=== PATIENT | male | born 1970 | race Caucasian/White ===

== ENCOUNTER 2018-10-17 07:26 | Emergency (ER) | payer MEDICAID ==
[~2018-10-17] VITALS: Ht 165.1 cm; Wt 77.3 kg
[2018-10-17 07:30] VITALS: BP 137/79
--- NOTE | 2018-10-17 07:50 | NUR ---
AMBULATORY TO ER #13 WITH C/O COUGH AND CONGESTION. PATIENT HAS MUMBLING, INCOMPLETE SENTENCES, AND IS DIFFICULT TO FOLLOW, BUT STATES THAT HE WAS TAKING IBUPROFEN FOR BODY ACHES AND COLD SYMPTOMS. DENIES MEDICAL PROBLEMS. STATES HX PSYCH PROBLEMS WITH INPATIENT ADMISSION. O2 SATS 97% ON ROOM AIR.
[2018-10-18] MEDS ORDERED: PRED20TA PO (05:10)
[2018-10-18] MEDS ORDERED: ALBU6.7H INH (05:10)
== END 2018-10-17 08:23 | disposition home or self-care (01) ==
LOC: ER 07:28 → EDSEX 07:28 → ER 08:23
DX: J20.9 Acute bronchitis, unspecified (principal); F17.210 Nicotine dependence, cigarettes, uncomplicated
CPT/HCPCS: 99281; 99406

== ENCOUNTER 2018-10-18 03:51 | Emergency (ER) | payer MEDICAID ==
[~2018-10-18] VITALS: Ht 165.1 cm; Wt 77.3 kg
[2018-10-18 03:54] VITALS: BP 134/83
--- NOTE | 2018-10-18 05:00 | NUR ---
Patient have multiple vague complaints. The reason for his visit is, "whole body infection." When asked why he thinks he has a whole body infection he states, "because of bile." Patient is resting comfortably in a chair with rapid speech and difficulty staying on one topic.
[2018-10-18] MEDS ORDERED: albuterol 2.5 mg/0.5ml nebule NEB ONE (05:10)
[2018-10-18] MEDS ORDERED: dexamethasone 4mg tablet PO ONE (05:10)
[2018-10-18] MEDS ORDERED: PRED20TA PO (05:10)
[2018-10-18] MEDS ORDERED: ALBU6.7H INH (05:10)
[2018-10-18] MEDS ORDERED: albuterol 2.5 MG/3 ML nebule NEB ONE (05:15)
== END 2018-10-18 05:46 | disposition home or self-care (01) ==
LOC: ER 03:52
DX: J40 Bronchitis, not specified as acute or chronic (principal); F17.200 Nicotine dependence, unspecified, uncomplicated; F10.10 Alcohol abuse, uncomplicated; Z71.6 Tobacco abuse counseling; Z59.0 Homelessness
CPT/HCPCS: 94640; 94760; 99283; J8540; J7611

== ENCOUNTER 2018-10-21 22:43 | Emergency (ER) | payer MEDICAID ==
[~2018-10-21] VITALS: Ht 165.1 cm; Wt 66.3 kg
[~2018-10-21 22:43] MED LIST: ALBU6.7H INH; PRED20TA PO
[2018-10-21 22:52] VITALS: BP 136/84
[2018-10-21 23:20] LABS: BASOPHILS # (AUTO) 0.1 X10'3 (0-0.2); BASOPHILS % (AUTO) 0.8 % (0-1); EOSINOPHILS # (AUTO) 0.1 X10'3 (0-0.9); EOSINOPHILS % (AUTO) 1.4 % (0-6); HEMOGLOBIN 15.7 g/dl (14.0-17.9); LYMPHOCYTES # (AUTO) 2.6 X10'3 (1.1-4.8); LYMPHOCYTES % (AUTO) 30.8 % (21-51); MEAN CORPUSCULAR HEMOGLOBIN 30.4 PG (27.0-31.0); MEAN CORPUSCULAR VOLUME 89.2 FL (78-98); MEAN PLATELET VOLUME 9.2 FL (7.4-10.4); MONOCYTES # (AUTO) 0.8 X10'3 (0-0.9); MONOCYTES % (AUTO) 9.5 % (2-12); NEUTROPHILS # (AUTO) 4.8 X10'3 (1.8-7.7); NEUTROPHILS % (AUTO) 57.5 % (42-75); PLATELET COUNT 246 X10'3 (140-440); RED BLOOD COUNT 5.16 X10'6 (4.70-6.10); RED CELL DISTRIBUTION WIDTH 14.3 % (11.5-14.5); WHITE BLOOD COUNT 8.4 X10'3 (4.5-11.0)
[2018-10-21 23:31] LABS: ALANINE AMINOTRANSFERASE 25 U/L (12-78); ALBUMIN 3.3 G/DL (3.4-5.0); ALBUMIN/GLOBULIN RATIO 0.9 (1.1-1.5); ALKALINE PHOSPHATASE 97 IU/L (46-116); ANION GAP 11 (8-16); ASPARTATE AMINO TRANSFERASE 17 U/L (10-37); BILIRUBIN,TOTAL 0.1 MG/DL (0.1-1.0); BLOOD UREA NITROGEN 17 MG/DL (7-18); BUN/CREATININE RATIO 20.5 (5.4-32.0); CALCIUM 8.3 MG/DL (8.5-10.1); CHLORIDE 106 MMOL/L (99-107); CREATININE 0.83 MG/DL (0.60-1.10); SODIUM 143 MMOL/L (135-145); TOTAL CARBON DIOXIDE 25.7 MMOL/L (24-32); eGFR > 90 ML/MIN
[2018-10-21 23:37] LABS: PARTIAL THROMBOPLASTIN TIME 25 SECONDS (22-32); PROTHROMBIN TIME 9.8 SECONDS (9.0-12.0)
[2018-10-21 23:59] LABS: GLUCOSE 130 MG/DL (70-104)
== END 2018-10-22 04:51 | disposition left against medical advice (07) ==
LOC: ER 22:43
DX: R07.89 Other chest pain (principal); Z53.21 Procedure and treatment not carried out due to patient leaving prior to being seen by health care provider
CPT/HCPCS: 36415; 71046; 80053; 84484; 85025; 85610; 85730; 93005